=== PATIENT | male | born 2000 | race Caucasian/White ===

== ENCOUNTER 2024-10-11 11:28 | Emergency (ER) | payer OTHER ==
[~2024-10-11] VITALS: Ht 172.7 cm; Wt 65.8 kg
[2024-10-11] MEDS ORDERED: LIDOCAINE 0.5%-EPI 1:200,000 50 ML VIAL ONE (11:57)
[2024-10-11] MEDS: LIDOCAINE 1%-EPI 1:100,000 50 ML VIAL IJ ONE (12:03)
[2024-10-11] MEDS ORDERED: SULF1TAB48 PO (12:40)
[2024-10-11] MEDS ORDERED: KETO10TA2 PO (12:41)
[2024-10-11 12:48] VITALS: BP 120/81; TEMP 98.5; O2SAT 98
== END 2024-10-11 12:50 | disposition home or self-care (01) ==
LOC: ER 11:36
DX: S71.111D Laceration without foreign body, right thigh, subsequent encounter (principal); T81.30XA Disruption of wound, unspecified, initial encounter; F12.10 Cannabis abuse, uncomplicated; X58.XXXD Exposure to other specified factors, subsequent encounter
CPT/HCPCS: 12020; 99284; J3490